=== PATIENT | male | born 1965 | race Caucasian/White ===

== ENCOUNTER 2019-09-30 14:20 | Outpatient (CLI) | payer OTHER ==
--- NOTE | 2019-09-30 17:54 | RAD ---
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 It is nearly at a [id number] situation at this point. I do not see any acute fractures. The remainder of the foot was unremarkable except for a large calcaneal spu r. There does appear to have been old trauma to the distal fibula. 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 POS: HOME
== END 2019-09-30 14:21 | disposition home or self-care (01) ==
LOC: BURRAD 14:20
PROVIDERS: ATTEND Podiatrist Foot & Ankle Surgery
DX: M79.671 Pain in right foot (principal); M20.21 Hallux rigidus, right foot; M19.071 Primary osteoarthritis, right ankle and foot